=== PATIENT | female | born 1965 | race Caucasian/White ===

== ENCOUNTER 2018-06-10 23:45 | Emergency (ER) | payer MEDICAID ==
[~2018-06-10] VITALS: Ht 165.1 cm; Wt 113.4 kg
[2018-06-11 00:05] VITALS: BP_SYST 113
[2018-06-11] MEDS ORDERED: MORPHINE 2 MG/ML INJ. SYRINGE IM ONE (01:30)
[2018-06-11] MEDS ORDERED: MORPHINE 4 MG/ML INJ. SYRINGE IM ONE (01:45)
[2018-06-11 02:15] LABS: HEMATOCRIT 37.7 % (36-48); HEMOGLOBIN 12.9 g/dL (12.0-16.0); MEAN CORPUSCULAR HEMOGLOBIN 29 pg (27-31); MEAN CORPUSCULAR HGB CONC 34 % (32-36); MEAN CORPUSCULAR VOLUME 83 fL (79.0-98.0); RED BLOOD CELL COUNT(AUTO) 4.52 MIL/uL (4.2-6.2); WHITE BLOOD COUNT (AUTO) 8.7 K/uL (4.8-10.8)
[2018-06-11 02:16] LABS: BASOPHILS % (AUTO) 0.3 % (0.0-2.0); EOSINOPHILS % (AUTO) 0.3 % (0.0-4.0); LYMPHOCYTES # (AUTO) 0.5 K/uL (1.0-5.5); LYMPHOCYTES % (AUTO) 5.7 % (20.5-51.5); MONOCYTES # (AUTO) 0.6 K/uL (0.0-1.0); MONOCYTES % (AUTO) 6.7 % (1.7-9.3); NEUTROPHILS # (AUTO) 7.6 K/uL (1.8-7.7); PLATELET COUNT (AUTO) 254 K/uL (130-430); RED CELL DISTRIBUTION WIDTH 14.3 % (9.0-15.0)
[2018-06-11] MEDS ORDERED: ACETAMINOPHEN 325 MG TABLET PO ONE ×2 (02:30→04:00)
[2018-06-11] MEDS ORDERED: OSELTAMIVIR PHOSPHATE 75 MG CAPSULE PO ONE ×2 (02:30→04:00)
[2018-06-11 02:33] LABS: CALCIUM 8.9 mg/dL (8.4-11.0)
[2018-06-11 02:34] LABS: ALBUMIN 2.7 g/dL (3.4-4.8); CREATININE 3.49 mg/dL (0.55-1.30); TOTAL BILIRUBIN 0.5 mg/dL (0.0-1.0)
[2018-06-11] MEDS ORDERED: KETOROLAC TROMETHAMINE 60 MG/2 ML VIAL IM ONE (03:45)
[2018-06-11 05:13] VITALS: BP_SYST 115
== END 2018-06-11 05:13 | disposition home or self-care (01) ==
LOC: SED 23:45
DX: J11.1 Influenza due to unidentified influenza virus with other respiratory manifestations (principal)
CPT/HCPCS: 36415; 70450; 80053; 85025; 86710; 96372; 99284; G9035; J1885; J2270

== ENCOUNTER 2019-04-04 23:55 | Inpatient (IN) | payer MEDICAID ==
[~2019-04-04] VITALS: Ht 165.1 cm; Wt 149.7 kg
[2019-04-04 23:55] VITALS: BP_SYST 144
[2019-04-05] VITALS (11 sets, daily range): BP systolic 100–147
[2019-04-05 00:30] LABS: BASOPHILS # (AUTO) 0.1 K/uL (0.0-0.2); BASOPHILS % (AUTO) 0.9 % (0.0-2.0); EOSINOPHILS # (AUTO) 0.1 K/uL (0.0-0.4); EOSINOPHILS % (AUTO) 1.8 % (0.0-4.0); HEMATOCRIT 34.5 % (36-48); HEMOGLOBIN 11.6 g/dL (12.0-16.0); LYMPHOCYTES # (AUTO) 1.2 K/uL (1.0-5.5); LYMPHOCYTES % (AUTO) 20.2 % (20.5-51.5); MEAN CORPUSCULAR HEMOGLOBIN 31 pg (27-31); MEAN CORPUSCULAR HGB CONC 34 % (32-36); MEAN CORPUSCULAR VOLUME 94 fL (79.0-98.0); MONOCYTES # (AUTO) 0.5 K/uL (0.0-1.0); MONOCYTES % (AUTO) 7.5 % (1.7-9.3); NEUTROPHILS # (AUTO) 4.2 K/uL (1.8-7.7); NEUTROPHILS % (AUTO) 69.6 % (40.0-70.0); PLATELET COUNT (AUTO) 233 K/uL (130-430); RED BLOOD CELL COUNT(AUTO) 3.69 MIL/uL (4.2-6.2); RED CELL DISTRIBUTION WIDTH 15.6 % (9.0-15.0); WHITE BLOOD COUNT (AUTO) 6.1 K/uL (4.8-10.8)
[2019-04-05 00:41] LABS: ANION GAP 6 (5-15); CALCIUM 8.5 mg/dL (8.4-11.0); CHLORIDE 101 mmol/L (98-107); CREATININE 6.04 mg/dL (0.55-1.30); GLUCOSE 189 mg/dL (70-99); POTASSIUM 4.8 mmol/L (3.5-5.1); SODIUM SERUM 138 mmol/L (136-145); UREA NITROGEN, BLOOD 49 mg/dL (8-21)
[2019-04-05 00:43] LABS: INR 1.1 (0.8-1.2); PROTHROMBIN TIME 10.6 SECS (9.5-12.5)
[2019-04-05] MEDS ORDERED: fentaNYL CITRATE/PF 100 MCG/2 ML AMP IVP ONE ×3 (00:45→06:45)
[2019-04-05] MEDS ORDERED: MORPHINE 2 MG/ML INJ. SYRINGE IVP ONE (00:45)
[2019-04-05 00:47] LABS: ALANINE AMINOTRANSFERASE 21 U/L (12-78); ASPARTATE AMINOTRANSFERASE 17 U/L (10-37); TOTAL BILIRUBIN 0.5 mg/dL (0.0-1.0)
[2019-04-05 00:49] LABS: GFR AFRICAN AMERICAN 9 mL/min (>90)
[2019-04-05 00:50] LABS: ALBUMIN < 0.6 g/dL (3.4-4.8)
[2019-04-05] MEDS ORDERED: DEXTROSE 50% JECT 50 ML DISP.SYRIN IVP PRN (09:15)
[2019-04-05] MEDS: HYDROmorphone 1 MG INJ. 1 MG/ML AMPUL IVP PRN ×3 (12:11→23:38)
[2019-04-05] MEDS ORDERED: HYDR100T25 PO (13:49)
[2019-04-05] MEDS ORDERED: MINO2.5T PO (13:49)
[2019-04-05] MEDS ORDERED: FURO-149 PO (13:49)
[2019-04-05] MEDS ORDERED: INSU100V SQ (13:49)
[2019-04-05] MEDS: INSULIN REGULAR, HUMAN 100 UNITS/ML, 10 ML VIAL (humuLIN R) SUBCUT PRN ×2 (17:17→20:14)
[2019-04-06] VITALS: BP_SYST 114
[2019-04-06] MEDS: HYDROmorphone 1 MG INJ. 1 MG/ML AMPUL IVP PRN ×5 (03:35→20:36)
[2019-04-06] MEDS: INSULIN REGULAR, HUMAN 100 UNITS/ML, 10 ML VIAL (humuLIN R) SUBCUT PRN (06:21)
[2019-04-06 07:07] LABS: BASOPHILS % (AUTO) 0.5 % (0.0-2.0); EOSINOPHILS # (AUTO) 0.2 K/uL (0.0-0.4); EOSINOPHILS % (AUTO) 3.4 % (0.0-4.0); HEMATOCRIT 34.3 % (36-48); HEMOGLOBIN 11.4 g/dL (12.0-16.0); LYMPHOCYTES # (AUTO) 1.4 K/uL (1.0-5.5); LYMPHOCYTES % (AUTO) 24.9 % (20.5-51.5); MEAN CORPUSCULAR HEMOGLOBIN 32 pg (27-31); MEAN CORPUSCULAR HGB CONC 33 % (32-36); MEAN CORPUSCULAR VOLUME 95 fL (79.0-98.0); MONOCYTES # (AUTO) 0.5 K/uL (0.0-1.0); MONOCYTES % (AUTO) 9.3 % (1.7-9.3); NEUTROPHILS # (AUTO) 3.5 K/uL (1.8-7.7); NEUTROPHILS % (AUTO) 61.9 % (40.0-70.0); PLATELET COUNT (AUTO) 226 K/uL (130-430); RED BLOOD CELL COUNT(AUTO) 3.63 MIL/uL (4.2-6.2); WHITE BLOOD COUNT (AUTO) 5.6 K/uL (4.8-10.8)
[2019-04-06 07:14] LABS: ALBUMIN 3.4 g/dL (3.4-4.8); CALCIUM 8.9 mg/dL (8.4-11.0); CREATININE 5.56 mg/dL (0.55-1.30); POTASSIUM 4.8 mmol/L (3.5-5.1); TOTAL BILIRUBIN 0.5 mg/dL (0.0-1.0)
[2019-04-06 08:00] VITALS: BP_SYST 125
[2019-04-06 11:02] VITALS: BP_SYST 127
[2019-04-06] MEDS ORDERED: ACETAMINOPHEN 325 MG TABLET PO PRN (13:30)
[2019-04-06] MEDS ORDERED: ONDANSETRON HCL 4 MG/2 ML VIAL IVP PRN (13:30)
[2019-04-06 15:32] VITALS: BP_SYST 135
[2019-04-06 20:00] VITALS: BP_SYST 145
[2019-04-07] MEDS: HYDROmorphone 1 MG INJ. 1 MG/ML AMPUL IVP PRN ×5 (00:38→21:56)
[2019-04-07 01:33] VITALS: BP_SYST 149
[2019-04-07 08:03] VITALS: BP_SYST 136
[2019-04-07 11:29] VITALS: BP_SYST 152
[2019-04-07] MEDS: HYDROcodone/ACETAMIN 10-325 MG TAB PO PRN (14:35)
[2019-04-07 15:04] VITALS: BP_SYST 146
[2019-04-07] MEDS ORDERED: HYDROmorphone 1 MG INJ. 1 MG/ML AMPUL IVP ONE (17:00)
[2019-04-07] MEDS: SERTRALINE HCL 50 MG TABLET PO SCH ×2 (18:00→18:08)
[2019-04-07 20:00] VITALS: BP_SYST 158
[2019-04-08] VITALS (7 sets, daily range): BP systolic 132–164
[2019-04-08] MEDS: HYDROcodone/ACETAMIN 10-325 MG TAB PO PRN ×5 (01:57→20:49)
[2019-04-08] MEDS: HYDROmorphone 1 MG INJ. 1 MG/ML AMPUL IVP PRN ×3 (04:10→15:12)
[2019-04-08 07:00] LABS: BASOPHILS % (AUTO) 0.9 % (0.0-2.0); EOSINOPHILS # (AUTO) 0.2 K/uL (0.0-0.4); EOSINOPHILS % (AUTO) 2.7 % (0.0-4.0); HEMATOCRIT 34.8 % (36-48); HEMOGLOBIN 11.7 g/dL (12.0-16.0); LYMPHOCYTES # (AUTO) 1.4 K/uL (1.0-5.5); LYMPHOCYTES % (AUTO) 24.2 % (20.5-51.5); MEAN CORPUSCULAR HEMOGLOBIN 32 pg (27-31); MEAN CORPUSCULAR HGB CONC 34 % (32-36); MEAN CORPUSCULAR VOLUME 94 fL (79.0-98.0); MONOCYTES # (AUTO) 0.5 K/uL (0.0-1.0); MONOCYTES % (AUTO) 8.6 % (1.7-9.3); NEUTROPHILS # (AUTO) 3.7 K/uL (1.8-7.7); NEUTROPHILS % (AUTO) 63.6 % (40.0-70.0); PLATELET COUNT (AUTO) 206 K/uL (130-430); RED BLOOD CELL COUNT(AUTO) 3.71 MIL/uL (4.2-6.2); RED CELL DISTRIBUTION WIDTH 15.2 % (9.0-15.0); WHITE BLOOD COUNT (AUTO) 5.8 K/uL (4.8-10.8)
[2019-04-08 07:15] LABS: ALBUMIN 3.3 g/dL (3.4-4.8); CALCIUM 8.5 mg/dL (8.4-11.0); CREATININE 6.37 mg/dL (0.55-1.30); POTASSIUM 5.3 mmol/L (3.5-5.1); TOTAL BILIRUBIN 0.5 mg/dL (0.0-1.0)
[2019-04-08] MEDS ORDERED: CITALOPRAM HYDROBROMIDE 20 MG TABLET PO SCH (09:00)
[2019-04-08] MEDS ORDERED: ALTEPLASE 2 MG VIAL MC ONE (19:00)
== END 2019-04-08 21:58 | disposition home or self-care (01) | DRG 194 ==
LOC: SED 23:55 → SIC 04-05 02:37 → STU 04-05 07:30 → SIC 04-05 08:08 → STU 04-05 16:45 → SMU 04-06 13:11
PROVIDERS: ADMIT Internal Medicine; ATTEND Internal Medicine
PROC: 5A1D70Z Performance of Urinary Filtration, Intermittent, Less than 6 Hours Per Day (ICD-10-PCS; principal; 2019-04-08)
DX: I13.2 Hypertensive heart and chronic kidney disease with heart failure and with stage 5 chronic kidney disease, or end stage renal disease (principal); J96.00 Acute respiratory failure, unspecified whether with hypoxia or hypercapnia; E43 Unspecified severe protein-calorie malnutrition; E11.22 Type 2 diabetes mellitus with diabetic chronic kidney disease; N18.6 End stage renal disease; E66.01 Morbid (severe) obesity due to excess calories; E87.79 Other fluid overload; F32.9 Major depressive disorder, single episode, unspecified; F41.9 Anxiety disorder, unspecified; Z88.5 Allergy status to narcotic agent; Z88.2 Allergy status to sulfonamides; G89.29 Other chronic pain; M54.9 Dorsalgia, unspecified; D63.8 Anemia in other chronic diseases classified elsewhere; D64.9 Anemia, unspecified; E78.5 Hyperlipidemia, unspecified; Z76.5 Malingerer [conscious simulation]; M47.9 Spondylosis, unspecified; Z68.43 Body mass index [BMI] 50.0-59.9, adult; Z79.84 Long term (current) use of oral hypoglycemic drugs; I50.9 Heart failure, unspecified
CPT/HCPCS: 36415; 71045; 72110; 80053; 82550-TC; 82962; 83880; 84439; 84484; 85025; 85610-TC; 87081; 90935; 90937; 93005; 93306; 96374; 99285; G0378; J1170; J1815; J2997; J3010; J7030

== ENCOUNTER 2019-04-09 20:31 | Inpatient (IN) | payer MEDICAID ==
[~2019-04-09] VITALS: Ht 165.1 cm; Wt 144.7 kg
[~2019-04-09 20:31] MED LIST: FURO-149 PO; HYDR100T25 PO; INSU100V SQ; MINO2.5T PO
[2019-04-09 20:35] VITALS: BP_SYST 151
--- NOTE | 2019-04-09 20:35 | NUR ---
Patient to ER bed 6 to gown for evaluation. Side rails up. Report given to GABRIELLA Islas
--- NOTE | 2019-04-09 20:45 | NUR ---
Pt BIB daughter C/O gradual onset of SOB and back pain since this afternoon. Pt states she feels "winded". Pt was recently discharged last night for CHF exacerbation and similar symptoms. Back pain is 10/10 and O2 sat is 94-95% on room air at time of assessment. Denies any chest pain, N/V/D or any other symptoms at this time. Will continue to monitor.
--- NOTE | 2019-04-09 21:12 | NUR ---
ER Dr. Palumbo at bedside examining patient.
--- NOTE | 2019-04-09 21:35 | NUR ---
# 20 gauge angiocath placed to RT AC. Use of asceptic technique. Opsite placed over site. Blood return noted. Blood for lab drawn from site. Flushed with 10 cc of normal saline. No evidence of infiltration noted. Patient tolerated well.
[2019-04-09 21:52] LABS: BASOPHILS % (AUTO) 0.9 % (0.0-2.0); EOSINOPHILS # (AUTO) 0.1 K/uL (0.0-0.4); EOSINOPHILS % (AUTO) 2.1 % (0.0-4.0); HEMATOCRIT 32.9 % (36-48); HEMOGLOBIN 11.1 g/dL (12.0-16.0); LYMPHOCYTES # (AUTO) 1.1 K/uL (1.0-5.5); LYMPHOCYTES % (AUTO) 22.4 % (20.5-51.5); MEAN CORPUSCULAR HEMOGLOBIN 31 pg (27-31); MEAN CORPUSCULAR HGB CONC 34 % (32-36); MEAN CORPUSCULAR VOLUME 93 fL (79.0-98.0); MONOCYTES # (AUTO) 0.4 K/uL (0.0-1.0); MONOCYTES % (AUTO) 8.6 % (1.7-9.3); NEUTROPHILS # (AUTO) 3.4 K/uL (1.8-7.7); PLATELET COUNT (AUTO) 168 K/uL (130-430); RED BLOOD CELL COUNT(AUTO) 3.55 MIL/uL (4.2-6.2); RED CELL DISTRIBUTION WIDTH 15.4 % (9.0-15.0); WHITE BLOOD COUNT (AUTO) 5.1 K/uL (4.8-10.8)
[2019-04-09 22:10] LABS: ANION GAP 10 (5-15); CALCIUM 8.7 mg/dL (8.4-11.0); CHLORIDE 104 mmol/L (98-107); CREATININE 6.31 mg/dL (0.55-1.30); GLUCOSE 188 mg/dL (70-99); POTASSIUM 4.6 mmol/L (3.5-5.1); SODIUM SERUM 140 mmol/L (136-145); UREA NITROGEN, BLOOD 60 mg/dL (8-21)
[2019-04-09 22:17] LABS: GFR AFRICAN AMERICAN 9 mL/min (>90)
[2019-04-09 22:24] LABS: ALANINE AMINOTRANSFERASE 14 U/L (12-78); ALBUMIN 3.2 g/dL (3.4-4.8); ASPARTATE AMINOTRANSFERASE 19 U/L (10-37); TOTAL BILIRUBIN 0.5 mg/dL (0.0-1.0)
--- NOTE | 2019-04-09 22:40 | NUR ---
Pt is restless and anxious in bed, constantly yelling in the room. Pt has been educated to rest in bed and patiently wait for diagnositic results to come in. Will continue to monitor.
--- NOTE | 2019-04-09 23:34 | NUR ---
Pt is resting in bed, no acute distress noted at this time. Will continue to monitor.
--- NOTE | 2019-04-10 00:18 | NUR ---
Daughter Lilli left contact information for any updates or change in condition
--- NOTE | 2019-04-10 01:00 | NUR ---
Pt is able to ambulate to restroom with no assistance, will continue to monitor.
[2019-04-10] MEDS ORDERED: KETOROLAC TROMETHAMINE 15 MG VIAL IVP ONE ×2 (01:30→01:45)
--- NOTE | 2019-04-10 01:39 | NUR ---
Pt has been medicated with Toradol IVP for back pain, will continue to monitor.
[2019-04-10] MEDS ORDERED: KETOROLAC TROMETHAMINE 15 MG VIAL ONE (01:46)
--- NOTE | 2019-04-10 02:02 | NUR ---
Medication reconciliation completed with information provided by patient. Any prior medication reconciliation on file was reviewed and corrected.
[2019-04-10] MEDS ORDERED: hydrALAZINE HCL 20 MG/ML VIAL IVP ONE (02:15)
--- NOTE | 2019-04-10 03:18 | NUR ---
Pt is sleeping comfortably in bed, no complaints of pain at this time. Will continue to monitor.
[2019-04-10] MEDS ORDERED: INSULIN REGULAR, HUMAN 100 UNITS/ML, 10 ML VIAL (humuLIN R) SUBCUT PRN ×2 (03:45→11:30)
[2019-04-10] MEDS ORDERED: cloNIDine HCL 0.1 MG TABLET PO PRN (03:45)
--- NOTE | 2019-04-10 03:55 | NUR ---
Patient will be admitted to care of Dr. Stearns. Admitted to telemetry unit. Will go to room 125A. Belongings list completed. Summary report printed. Report will be given at bedside.
--- NOTE | 2019-04-10 04:07 | NUR ---
CONSULTATION PAGED/CALLED Reason for Consultation: NEPHROLOGY Person Who was Notified: CASIMIRO Consulting Physician: DR. FERNANDEZ Fire Warden Specialty: Ordering Physician: DR. AYALA
--- NOTE | 2019-04-10 04:24 | NUR ---
ADMIT NOTE Received pt from ER to [facility] floor with a diagnosis of fluid overload. Admission process initiated. patient oriented to pain management, safety and call light-teach back done.
[2019-04-10] MEDS ORDERED: FUROSEMIDE 100 MG/10 ML VIAL IVP SCH (04:30)
--- NOTE | 2019-04-10 04:34 | NUR ---
Transfer to telemetry via ACLS protocol. Licensed nurse present. IV present no signs or symptoms of infiltration.
[2019-04-10 04:38] VITALS: BP_SYST 181
[2019-04-10] MEDS ORDERED: FUROSEMIDE 40 MG/4 ML VIAL ONE (05:13)
[2019-04-10] MEDS: HYDROcodone/ACETAMIN 10-325 MG TAB PO PRN ×4 (05:26→22:08)
--- NOTE | 2019-04-10 05:30 | NUR ---
c/o pain c/o moderate pain to low back. Administered [place] for moderate pain as ordered.
[2019-04-10 06:35] VITALS: BP_SYST 117
--- NOTE | 2019-04-10 06:40 | NUR ---
closing note Patient is resting in comfortable position. Pain decreased to a one. Nonlabored breathing on room air. Fingerstick BGT done w/ result of 157 and covered per sliding scale. Will endorse care to oncoming nurse
[2019-04-10 08:10] VITALS: BP_SYST 120
--- NOTE | 2019-04-10 09:07 | NUR ---
Nutrition Update Jaskaran Scale 18 noted. Pt admitted for fluid overload. Diet: renal BMI: 53.3 kg/m2 RD to follow per nutrition care standards.
[2019-04-10] MEDS ORDERED: DEXTROSE 50% JECT 50 ML DISP.SYRIN IVP PRN (11:30)
--- NOTE | 2019-04-10 11:52 | NUR ---
INFORMED RAMYA OF NM THAT PT WILL HAVE HD NOW AND EXPECTED TO FINISH AT 4PM
--- NOTE | 2019-04-10 12:03 | NUR ---
PT HAVE U/S OF LEG DONE, BS IS 194, NO COVERAGE PER SLIDING SCALE. PT INFORMED THAT HD NURSE IS COMING AND EXPECTED HD TO FINISH AT 4PM AND SHE WILL HAVE VQ SCAN OF LUNGS AFTER HD.
[2019-04-10] MEDS ORDERED: HEPARIN SODIUM,PORCINE 5000 UNITS/ML VIAL IVP ONE (12:30)
--- NOTE | 2019-04-10 12:50 | NUR ---
CONSULTATION CALLED FOR ALYSSA GARCIA ORDER BY JAMIE STINSON FOR CONSULT OF CHF SPOKE WITH ARABELLA
--- NOTE | 2019-04-10 14:27 | NUR ---
PT HAVING HD THIS TIME. NO C/O PAIN. NO SOB.
[2019-04-10] MEDS: hydrALAZINE HCL 25 MG TABLET PO SCH ×2 (16:04→22:01)
--- NOTE | 2019-04-10 16:10 | NUR ---
HD COMPLETED, 4 LI OUTPUT, PT C/O OF SHOOTING PAIN ON HER LOWER RIB GOING FROM LEFT TO RIGHT, PT GIVEN PAIN MEDICATION. PT TURNED AND REPOSITIONED SELF, STATED PAIN IS GETTING BETTER. WILL CONT TO MONITOR.
--- NOTE | 2019-04-10 16:47 | NUR ---
PT NOW C/O OF PAIN ON HER LOWER BACK, PT OSWALDO , STATED THAT HER LOWER RIB PAIN WENT AWAY AFTER NORCO WAS GIVEN. DR AYALA WAS PAGED AND GAVE A 1 X ORDER OR PAIN MED.
[2019-04-10] MEDS ORDERED: HYDROmorphone 1 MG INJ. 1 MG/ML AMPUL IVP ONE (17:15)
[2019-04-10 17:23] VITALS: BP_SYST 138
--- NOTE | 2019-04-10 17:32 | NUR ---
PT GIVEN DILAUDID 1MG X1 PREMED FOR VQSCAN. PT TAKEN DOWN BY [employer] FOR VQ SCAN VIA WC.
--- NOTE | 2019-04-10 17:51 | NUR ---
PT CAME BACK FROM [place], PER PT SHE WAS UNABLE TO TOLERATE THE TEST WITH THE MASK, THEY TRIED 4 X WITH THE MASK BUT SHE SHE CANT TOLERATE IT. WILL INFORM DR AYALA. PAGED TO MAKE AWARE.
--- NOTE | 2019-04-10 17:55 | NUR ---
DR AYALA INFORMED THAT PT UNABLE TO TOLERATE THE INITIAL PHASE OF THE VQ SCAN. NEW ORDER GIVEN.
--- NOTE | 2019-04-10 18:37 | NUR ---
CLOSING NOTES, PT HAS BEEN STABLE, C/O OF ON AND OFF SOB BUT SATURATION WAS WNL. PT HAD HD 4 LI. TAKEN OUT. GIVEN PAIN MEDS REQUESTED. PT UNABLE TO TOLERATE VQ SCAN MD IS AWARE. WILL ENDORSE TO NIGHT NURSE.
--- NOTE | 2019-04-10 19:18 | NUR ---
OPENING NOTES RECEIVED PATIENT IN BED AAO X4. BREATHING UNLABORED ON ROOM AIR. NO C/O PAIN AT THIS TIME. BED IN LOWEST LOCKED POSITION. CALL LIGHT WITH IN REACH.
[2019-04-10] MEDS ORDERED: ENOXAPARIN SODIUM 30 MG/0.3 ML SYRINGE SUBCUT SCH (21:00)
[2019-04-10 22:00] VITALS: BP_SYST 153
[2019-04-10] MEDS: MINOXIDIL 10 MG TABLET (LONITEN) PO SCH (22:02)
--- NOTE | 2019-04-10 22:04 | NUR ---
MED PASS PATIENT DUE MEDICATIONS GIVEN. VITAL SIGNS STABLE.
--- NOTE | 2019-04-10 22:08 | NUR ---
AIN MGT PATIENT MEDICATED WITH NORCO ORDERED FOR C/O BACK PAIN 11/12. VITAL SIGNS STABLE. CALL LIGHT WITH IN REACH.
--- NOTE | 2019-04-11 00:30 | NUR ---
ROUNDS PATIENT SITTING IN BED. NO DISTRESS NOTED. PLACED CALL LIGHT WITH IN REACH. PER PATIENT SHE WILL SIT FOR THE MEAN TIME. PATIENT ENCOURAGED TO USE CALL LIGHT FOR ANY ASSISTANCE SPECIALLY WHEN GETTING OUT OF BED.
--- NOTE | 2019-04-11 02:15 | NUR ---
ROUNDS PATIENT RESTING IN BED. NO DISTRESS NOTED. CALL LIGHT WITH IN REACH.
[2019-04-11] MEDS: HYDROcodone/ACETAMIN 10-325 MG TAB PO PRN ×2 (04:09→09:28)
--- NOTE | 2019-04-11 04:09 | NUR ---
PAIN MGT PATIENT MEDICATED WITH NORCO FOR C/O LOWER BACK PAIN.
--- NOTE | 2019-04-11 06:29 | NUR ---
CLOSING NOTES PATIENT RESTING IN BED. BREATHING UNLABORED ON ROOM AIR. AM FINGER STICK SUGAR 149. NO INSULIN COVERAGE NEEDED PER SLIDING SCALE ORDER. PATIENT NEEDS ATTENDED. BED IN LOWEST LOCKED POSITION. CALL LIGHT WITH IN REACH.
--- NOTE | 2019-04-11 07:30 | NUR ---
Initial note: Patient was sleeping but wake up for a phone ring. She is alert, oriented x4, states feeling hungry. Inform her that a LAUNDRY ROUTE DRIVER is passing the tray now. She states that she is legally blind. But when tell her to call us to help when she needs to get up and go to the bathroom, she said she still can see when she goes to the bathroom. Set a bed alarm for safety.
[2019-04-11 07:32] VITALS: BP_SYST 140
[2019-04-11] MEDS ORDERED: FUROSEMIDE 40 MG TABLET PO SCH (09:00)
[2019-04-11] MEDS: hydrALAZINE HCL 25 MG TABLET PO SCH (09:21)
[2019-04-11] MEDS: MINOXIDIL 10 MG TABLET (LONITEN) PO SCH (09:24)
--- NOTE | 2019-04-11 09:47 | NUR ---
Nephro round: Dr. Clark makes round and has new orders for HD and Labs for TM.
--- NOTE | 2019-04-11 11:27 | NUR ---
Refuses SNF: Inform patient that there is order for DC to SNF, but patient states she wants to go home not a snf. Will inform a vocational case manager and .
--- NOTE | 2019-04-11 11:48 | NUR ---
AMA: Dr. Stearns makes round and talks to the patient that she needs to go to SNF, but she refuses . Dr. Stearns states she can sign AMA if she wants to go home. Get a AMA for her to sign, and she has called her dad to pick her up. IV lock removed with dry dressing apply, no bleeding sign.
--- NOTE | 2019-04-11 12:00 | NUR ---
Nutrition Note RD visited pt for Nutrition Assessment verbal interview, however, pt stated she was leaving soon and was not interested in RD services. Pt requested pitcher full of ice to-go because she reported she cannot eat anything else at this time, and does not have ice at home. RD provided ice for pt. RD to remain available as per nutrition care standards.
--- NOTE | 2019-04-11 13:41 | NUR ---
DC: Family at bedside. Patient is discharged <AMA> via a wheelchair by on of the MANAGER CORPORATE MARKETING to a private vehicle with stable condition.
== END 2019-04-11 12:20 | disposition left against medical advice (07) | DRG 470 ==
LOC: SED 20:31 → STU 04-10 03:31 → SMU 04-10 15:45
PROVIDERS: ADMIT Internal Medicine; ATTEND Internal Medicine
PROC: 5A1D70Z Performance of Urinary Filtration, Intermittent, Less than 6 Hours Per Day (ICD-10-PCS; principal; 2019-04-10)
DX: I12.0 Hypertensive chronic kidney disease with stage 5 chronic kidney disease or end stage renal disease (principal); E11.22 Type 2 diabetes mellitus with diabetic chronic kidney disease; N18.6 End stage renal disease; E87.70 Fluid overload, unspecified; E66.01 Morbid (severe) obesity due to excess calories; D63.1 Anemia in chronic kidney disease; Z53.29 Procedure and treatment not carried out because of patient's decision for other reasons; G89.29 Other chronic pain; M54.9 Dorsalgia, unspecified; M47.816 Spondylosis without myelopathy or radiculopathy, lumbar region; Z99.2 Dependence on renal dialysis; Z68.43 Body mass index [BMI] 50.0-59.9, adult; Z88.5 Allergy status to narcotic agent; Z91.19 Patient's noncompliance with other medical treatment and regimen; E44.1 Mild protein-calorie malnutrition
CPT/HCPCS: 36415; 71045; 80053; 82550-TC; 82962; 83880; 84484; 85025; 85379; 87081; 90935; 93005; 93970; 96374; 96375; 99285; J0360; J1170; J1644; J1650; J1815; J1885; J1940; J7030

== ENCOUNTER 2019-04-25 21:40 | Observation (INO) | payer MEDICAID ==
[~2019-04-25] VITALS: Ht 165.1 cm; Wt 132.4 kg
[2019-04-25] MEDS ORDERED: NITROGLYCERIN 1 INCH (GM) OINT. ONE (22:24)
[2019-04-25] MEDS ORDERED: FUROSEMIDE 40 MG/4 ML VIAL ONE (22:24)
[2019-04-25] MEDS ORDERED: ALBUTEROL SULFATE 0.083% 2.5 MG/3 ML VIAL.NEB INH ONE (22:25)
[2019-04-26] VITALS (8 sets, daily range): BP systolic 136–158
[2019-04-26] MEDS ORDERED: HYDROcodone/ACETAMIN 7.5-325 MG TAB ONE (00:05)
--- NOTE | 2019-04-26 01:24 | NUR ---
0047 ADMIT NOTE Received pt from ER to the floor with a diagnosis of chf exacerbation. Admission process initiated. patient oriented to pain management, safety and call light-teach back done.
--- NOTE | 2019-04-26 02:21 | NUR ---
RN ROUNDS Patient resting quietly in bed, breathing is even and unlabored, remains on 02 6L NC, fall and safety measures in place, call light within reach, will monitor.
--- NOTE | 2019-04-26 03:26 | NUR ---
RN ROUNDS Patient assisted to bathroom, steady gait noted, denies any shortness of breath, placed back in bed, 02 at 6L NC placed, patient denies any pain at this time.
--- NOTE | 2019-04-26 03:58 | NUR ---
Consultation Paged Reason for Consultation: CHF Was consult called: Y Person who was notified: Ariella Consulting Physician: Dr. Olmedo Color Paste Mixing Supervisor Ordering Physician: Dr. Walker
--- NOTE | 2019-04-26 04:00 | NUR ---
Consultation Paged Reason for Consultation: Hemodialysis/CHF Was consult called: Y Person who was notified: Ariella Consulting Physician: Dr. Clark Community Youth Secretary Ordering Physician: Dr. Walker
--- NOTE | 2019-04-26 04:04 | NUR ---
Consultation Paged Reason for Consultation: CHF/SOB Was consult called: Y Person who was notified: Ariella Consulting Physician: Ebony Escalante Scientific Illustrator Ordering Physician: Dr. Walker
--- NOTE | 2019-04-26 06:14 | NUR ---
RN ROUNDS Patient continues to sleep, breathing is even and unlabored, remains on 02 6L NC, in stable condition, safety measures maintained, call light remains within reach, will monitor until report given to am nurse.
--- NOTE | 2019-04-26 07:35 | NUR ---
AM ROUNDS: PATIENT LYING ON THE BED,ASLEEP. ON O2 6L/MIN,GOOD SATURATION.RIGHT CHEST PERMA CATHETER,CLEAN AND DRY.LEFT AV SHUNT,CLEAN AND DRY. CALL LIGHT WITH IN REACH. BED LOCKED AT LOWEST POSITION. CONTINUE TO MONITOR.
[2019-04-26] MEDS ORDERED: ZOLPIDEM TARTRATE 5 MG TABLET PO PRN (08:45)
[2019-04-26] MEDS ORDERED: MAGNESIUM SULFATE 50 ML IV PRN (08:45)
[2019-04-26] MEDS ORDERED: ONDANSETRON HCL 4 MG/2 ML VIAL IVP PRN (08:45)
[2019-04-26] MEDS ORDERED: ACETAMINOPHEN 325 MG TABLET PO PRN (08:45)
[2019-04-26] MEDS ORDERED: LORazepam 2 MG/ML VIAL IVP PRN (08:45)
[2019-04-26] MEDS ORDERED: DOCUSATE SODIUM 100 MG CAPSULE PO PRN (08:45)
[2019-04-26] MEDS ORDERED: MUPIROCIN 2% TOPICAL OINTMENT 22 GM NS PRN (08:45)
[2019-04-26] MEDS ORDERED: DEXTROSE 50% JECT 50 ML DISP.SYRIN IVP PRN (08:45)
[2019-04-26] MEDS ORDERED: POTASSIUM CHLORIDE 20 MEQ TAB.PRT.SR PO PRN (08:45)
[2019-04-26 08:49] LABS: BASOPHILS % (AUTO) 0.8 % (0.0-2.0); EOSINOPHILS # (AUTO) 0.1 K/uL (0.0-0.4); EOSINOPHILS % (AUTO) 2.1 % (0.0-4.0); HEMATOCRIT 32.6 % (36-48); HEMOGLOBIN 10.9 g/dL (12.0-16.0); LYMPHOCYTES # (AUTO) 1.3 K/uL (1.0-5.5); LYMPHOCYTES % (AUTO) 30.1 % (20.5-51.5); MEAN CORPUSCULAR HEMOGLOBIN 31 pg (27-31); MEAN CORPUSCULAR HGB CONC 34 % (32-36); MEAN CORPUSCULAR VOLUME 93 fL (79.0-98.0); MONOCYTES # (AUTO) 0.5 K/uL (0.0-1.0); NEUTROPHILS # (AUTO) 2.5 K/uL (1.8-7.7); PLATELET COUNT (AUTO) 171 K/uL (130-430); RED BLOOD CELL COUNT(AUTO) 3.51 MIL/uL (4.2-6.2); RED CELL DISTRIBUTION WIDTH 15.8 % (9.0-15.0); WHITE BLOOD COUNT (AUTO) 4.4 K/uL (4.8-10.8)
[2019-04-26] MEDS ORDERED: HEPARIN SODIUM,PORCINE 5000 UNITS/ML VIAL SUBCUT ONE (09:00)
[2019-04-26] MEDS ORDERED: hydrALAZINE HCL 25 MG TABLET PO SCH (09:00)
[2019-04-26] MEDS ORDERED: MINOXIDIL 2.5 MG PO SCH (09:00)
[2019-04-26 09:09] LABS: CALCIUM 8.5 mg/dL (8.4-11.0); CREATININE 6.27 mg/dL (0.55-1.30); POTASSIUM 3.7 mmol/L (3.5-5.1)
[2019-04-26 09:15] LABS: ALBUMIN 3.4 g/dL (3.4-4.8); TOTAL BILIRUBIN 0.5 mg/dL (0.0-1.0)
--- NOTE | 2019-04-26 09:30 | NUR ---
RN ROUNDS: PATIENT SLEEPING DURING ROUNDS. NOT IN ANY RESPIRATORY DISTRESS.
[2019-04-26] MEDS: hydrALAZINE HCL 25 MG TABLET PO SCH ×2 (09:32→20:58)
[2019-04-26] MEDS: FUROSEMIDE 40 MG/4 ML VIAL IVP SCH (09:32)
[2019-04-26] MEDS: INSULIN LISPRO SLIDING SCALE 100 UNITS/ML VIAL (humaLOG) SUBCUT PRN ×2 (11:29→17:12)
--- NOTE | 2019-04-26 11:30 | NUR ---
BLOOD SUGAR: PW=366HL/DL HUMULOG 4 UNITS SUBQ GIVEN PER SLIDING SCALE,NO COMPLICATIONS NOTED.
[2019-04-26 12:10] LABS: HEMATOCRIT 33.4 % (36-48); HEMOGLOBIN 11.3 g/dL (12.0-16.0); LYMPHOCYTES % (AUTO) 36.1 % (20.5-51.5); MEAN CORPUSCULAR HEMOGLOBIN 31 pg (27-31); MEAN CORPUSCULAR HGB CONC 34 % (32-36); MEAN CORPUSCULAR VOLUME 92 fL (79.0-98.0); NEUTROPHILS % (AUTO) 49.9 % (40.0-70.0); PLATELET COUNT (AUTO) 205 K/uL (130-430); RED BLOOD CELL COUNT(AUTO) 3.62 MIL/uL (4.2-6.2); RED CELL DISTRIBUTION WIDTH 15.8 % (9.0-15.0); WHITE BLOOD COUNT (AUTO) 5.3 K/uL (4.8-10.8)
[2019-04-26 12:11] LABS: BASOPHILS % (AUTO) 0.6 % (0.0-2.0); EOSINOPHILS # (AUTO) 0.1 K/uL (0.0-0.4); EOSINOPHILS % (AUTO) 1.8 % (0.0-4.0); LYMPHOCYTES # (AUTO) 1.9 K/uL (1.0-5.5); MONOCYTES # (AUTO) 0.6 K/uL (0.0-1.0); MONOCYTES % (AUTO) 11.6 % (1.7-9.3); NEUTROPHILS # (AUTO) 2.6 K/uL (1.8-7.7)
[2019-04-26 12:13] LABS: INR 1.1 (0.8-1.2)
[2019-04-26 12:14] LABS: CALCIUM 7.6 mg/dL (8.4-11.0); CREATININE 5.33 mg/dL (0.55-1.30); POTASSIUM 3.3 mmol/L (3.5-5.1); TOTAL BILIRUBIN 0.5 mg/dL (0.0-1.0)
--- NOTE | 2019-04-26 13:00 | NUR ---
RN ROUNDS: PATIENT ATE LUNCH. NO PROBLEM.
--- NOTE | 2019-04-26 15:15 | NUR ---
HD: HEMODIALYSIS STARTED.
--- NOTE | 2019-04-26 15:37 | NUR ---
Grad Intern: met with pt. to conduct a DCPA and Social Work interview. SOLE SPLITTER attempted to meet with pt. however she was sleeping and SOLE SPLITTER tried, but could not awaken her. SOLE SPLITTER tried again at 3:15, but she was in the middle of hemodialysis and she stated she was not in the mood to talk. SOLE SPLITTER stated she understands and will try again later. SOLE SPLITTER will remain available as needed.
[2019-04-26] MEDS ORDERED: HEPARIN SODIUM,PORCINE 5000 UNITS/ML VIAL MC ONE (16:00)
[2019-04-26] MEDS ORDERED: HEPARIN SODIUM, PORCINE 10,000 UNITS/ 10 ML VIAL MC ONE (16:00)
[2019-04-26] MEDS ORDERED: ALBUTEROL SULFATE 0.083% 2.5 MG/3 ML VIAL.NEB INH PRN (16:30)
[2019-04-26] MEDS ORDERED: IPRATROPIUM BROM 0.5 MG/2.5 ML VIAL.NEB (ATROVENT) INH PRN (16:30)
--- NOTE | 2019-04-26 17:20 | NUR ---
BLOOD SUGAR: RT=469AJ/DL,HUMULOG 2 UNITS SUBQ GIVEN PER SLIDING SCALE.NO PROBLEM. HD ON GOING.STABLE.
--- NOTE | 2019-04-26 18:25 | NUR ---
END OF SHIFT: HD OUT=5 LITERS. PATIENT EATING DINNER. NO ACUTE DISTRESS. WITH FAMILY AT THE BEDSIDE. CALL LIGHT WITH IN REACH. BED LOCKED AT LOWEST POSITION.
--- NOTE | 2019-04-26 19:19 | NUR ---
Opening Note Patient in bed resting alert and awake and able to verbalize her needs. IV site intact, saline lock. No current complaints of pain. Denies having any sob at this time. Oriented the patient to the room and use of the call light. Bed alarm refused with education provided on risk and benefits. Will monitor the patient on rounds.
[2019-04-26] MEDS: HEPARIN SODIUM,PORCINE 5000 UNITS/ML VIAL SUBCUT SCH (21:00)
--- NOTE | 2019-04-26 22:08 | NUR ---
BS 157. 2 Units Humalog given for coverage. Resting in bed.
[2019-04-27 00:43] VITALS: BP_SYST 134
--- NOTE | 2019-04-27 01:56 | NUR ---
Administered Ambien to help with sleep and tylenol for headache. Medication is effective. Patient is asleep in bed with no appearance of pain or sob.
--- NOTE | 2019-04-27 03:41 | NUR ---
No change in condition. Patient in bed asleep. Call light within reach.
[2019-04-27 06:45] LABS: BASOPHILS % (AUTO) 0.8 % (0.0-2.0); CALCIUM 8.4 mg/dL (8.4-11.0); CREATININE 4.88 mg/dL (0.55-1.30); EOSINOPHILS # (AUTO) 0.1 K/uL (0.0-0.4); EOSINOPHILS % (AUTO) 2.8 % (0.0-4.0); HEMATOCRIT 32.6 % (36-48); HEMOGLOBIN 11.1 g/dL (12.0-16.0); LYMPHOCYTES # (AUTO) 1.2 K/uL (1.0-5.5); MEAN CORPUSCULAR HEMOGLOBIN 32 pg (27-31); MEAN CORPUSCULAR HGB CONC 34 % (32-36); MEAN CORPUSCULAR VOLUME 93 fL (79.0-98.0); MONOCYTES # (AUTO) 0.5 K/uL (0.0-1.0); NEUTROPHILS # (AUTO) 2.7 K/uL (1.8-7.7); NEUTROPHILS % (AUTO) 59.4 % (40.0-70.0); PLATELET COUNT (AUTO) 179 K/uL (130-430); POTASSIUM 3.4 mmol/L (3.5-5.1); RED BLOOD CELL COUNT(AUTO) 3.52 MIL/uL (4.2-6.2); RED CELL DISTRIBUTION WIDTH 15.4 % (9.0-15.0); WHITE BLOOD COUNT (AUTO) 4.5 K/uL (4.8-10.8)
--- NOTE | 2019-04-27 06:51 | NUR ---
Closing Notes Patient in bed resting alert and orient. Refused bed alarm, education provided on risk and benefits. o2 at bedside, but patient keeps removing saying its uncomfortable. O2 sat at 93% on room air. IV intact on the right ac flushed, clean and dry. Call light placed within reach, bed locked and low. Will endorse care to oncoming shift.
[2019-04-27 08:00] VITALS: BP_SYST 149
--- NOTE | 2019-04-27 08:00 | NUR ---
initial notes rec patient awake alert and eating breakfast. ivl on the r ac intact. no infiltration noted. right internal jugular line intact. denies pain at this time. bed to the lowest position and side rails up and locked. call light within reached.
[2019-04-27] MEDS: hydrALAZINE HCL 25 MG TABLET PO SCH (10:00)
[2019-04-27] MEDS: FUROSEMIDE 40 MG/4 ML VIAL IVP SCH (10:00)
--- NOTE | 2019-04-27 10:02 | NUR ---
CHF PROTOCOL/ PCP APPOINTMENT WITHIN 1 WEEK PATIENT GROUP ON INSURANCE IS [facility]. CALLED [facility] SPOKE TO JELENA FROM [facility]. PATIENT HAS AN APPOINTMENT TO SEE DR RHODES ON MONDAY HER PCP AT 1:20PM.
[2019-04-27] MEDS: HEPARIN SODIUM,PORCINE 5000 UNITS/ML VIAL SUBCUT SCH (10:03)
[2019-04-27 10:18] VITALS: BP_SYST 149
== END 2019-04-27 10:40 | disposition home or self-care (01) ==
LOC: SED 21:40 → STU 04-26 00:20
PROVIDERS: ADMIT General Practice; ATTEND General Practice
DX: I13.2 Hypertensive heart and chronic kidney disease with heart failure and with stage 5 chronic kidney disease, or end stage renal disease (principal); I50.31 Acute diastolic (congestive) heart failure; N18.6 End stage renal disease; E11.22 Type 2 diabetes mellitus with diabetic chronic kidney disease; E11.21 Type 2 diabetes mellitus with diabetic nephropathy; E11.319 Type 2 diabetes mellitus with unspecified diabetic retinopathy without macular edema; E66.01 Morbid (severe) obesity due to excess calories; E46 Unspecified protein-calorie malnutrition; Z68.42 Body mass index [BMI] 45.0-49.9, adult; Z98.891 History of uterine scar from previous surgery
CPT/HCPCS: 36415 ×2; 71045; 80048; 80053; 82962 ×2; 83036; 83735; 83880; 84484; 85025 ×2; 85610; 85730; 87081; 93005; 94640 ×2; 96372 ×2; 96374; 96376; 99285; G0378 ×2; J1644 ×2; J1940 ×3; J7613; 90935; J7030

== ENCOUNTER 2019-05-03 01:36 | Emergency (ER) | payer MEDICAID ==
[~2019-05-03] VITALS: Ht 165.1 cm; Wt 113.4 kg
[~2019-05-03 01:36] MED LIST changes: -MINO2.5T PO
[2019-05-03 01:40] VITALS: BP_SYST 131
--- NOTE | 2019-05-03 01:40 | NUR ---
Patient to ER bed 4 to gown for evaluation. Side rails up. Report given to GABRIELLA Benton.
--- NOTE | 2019-05-03 01:50 | NUR ---
ER at bedside examining patient.
[2019-05-03] MEDS ORDERED: HYDROcodone/ACETAMIN 5-325 MG TAB (NORCO/ VICODIN) PO ONE (02:00)
[2019-05-03] MEDS ORDERED: IBUPROFEN 600 MG TABLET PO ONE (02:00)
--- NOTE | 2019-05-03 02:00 | NUR ---
Pt brought in by ambulance. Pt awake, alert, oriented x4. Pt states that she has had sore throat and R ear pain 10/10 for approx 3 days. Pt states that she has taken motrin with no pain relief. pt states that she is weak. Pt denies chest pain, sob, dizziness, blurred vision. Pt denies additional medical complaint at this time. vital signs stable.
[2019-05-03] MEDS ORDERED: AMOXICILLIN/CLAVULANATE POTASSIUM 875 MG TABLET PO ONE (03:30)
[2019-05-03] MEDS ORDERED: ONDANSETRON HCL 4 MG/2 ML VIAL IVP ONE (03:30)
[2019-05-03] MEDS ORDERED: fentaNYL CITRATE/PF 100 MCG/2 ML AMP IVP ONE (03:30)
--- NOTE | 2019-05-03 04:00 | NUR ---
Pt sleeping in bed comfortably. Vital signs stable.
[2019-05-03 06:40] VITALS: BP_SYST 130
--- NOTE | 2019-05-03 06:40 | NUR ---
Patient given written and verbal discharge instructions and verbalizes understanding. ER MD discussed with patient the results and treatment provided. Patient in stable condition. ID arm band removed. IV catheter removed intact and dressing applied, no active bleeding. Rx of [place], Augmentin, zofran, motrin given. Patient educated on pain management and to follow up with PMD. Pain Scale 0/10. Opportunity for questions provided and answered. Medication side effect fact sheet provided.
== END 2019-05-03 06:40 | disposition home or self-care (01) ==
LOC: SED 01:36
DX: J39.0 Retropharyngeal and parapharyngeal abscess (principal); I13.2 Hypertensive heart and chronic kidney disease with heart failure and with stage 5 chronic kidney disease, or end stage renal disease; E11.22 Type 2 diabetes mellitus with diabetic chronic kidney disease; N18.6 End stage renal disease; E11.40 Type 2 diabetes mellitus with diabetic neuropathy, unspecified; I50.9 Heart failure, unspecified; E11.319 Type 2 diabetes mellitus with unspecified diabetic retinopathy without macular edema; H92.01 Otalgia, right ear; F17.200 Nicotine dependence, unspecified, uncomplicated; F12.90 Cannabis use, unspecified, uncomplicated; Z79.4 Long term (current) use of insulin; Z79.899 Other long term (current) drug therapy; Z88.5 Allergy status to narcotic agent; Z99.2 Dependence on renal dialysis
CPT/HCPCS: 96374; 96375; 99284; J2405; J3010

== ENCOUNTER 2019-05-10 16:40 | Emergency (ER) | payer MEDICAID ==
[~2019-05-10 16:40] MED LIST changes: +LEVOFLOXACIN 750 mg/D5W 150 mL IVPB IV ONE
[2019-05-23 10:53] LABS: HEMATOCRIT 36.3 % (36-48); HEMOGLOBIN 11.6 g/dL (12.0-16.0); MEAN CORPUSCULAR HEMOGLOBIN 31 pg (27-31); MEAN CORPUSCULAR HGB CONC 33 % (32-36); MEAN CORPUSCULAR VOLUME 94 fL (79.0-98.0); PLATELET COUNT (AUTO) 226 K/uL (130-430); RED BLOOD CELL COUNT(AUTO) 3.86 MIL/uL (4.2-6.2); RED CELL DISTRIBUTION WIDTH 16.7 % (9.0-15.0); WHITE BLOOD COUNT (AUTO) 7.8 K/uL (4.8-10.8)
[2019-05-23 10:54] LABS: BASOPHILS % (AUTO) 0.7 % (0.0-2.0); LYMPHOCYTES % (AUTO) 18.5 % (20.5-51.5); MONOCYTES % (AUTO) 6.1 % (1.7-9.3); NEUTROPHILS % (AUTO) 71.7 % (40.0-70.0)
[2019-05-23 10:56] LABS: CALCIUM 8.8 mg/dL (8.4-11.0); CREATININE 6.26 mg/dL (0.55-1.30); POTASSIUM 4.4 mmol/L (3.5-5.1); TOTAL BILIRUBIN 0.6 mg/dL (0.0-1.0)
[2019-05-23 10:57] LABS: ALBUMIN 3.6 g/dL (3.4-4.8)
[2019-05-23 10:58] LABS: INR 1.1 (0.8-1.2)
== END 2019-05-10 16:45 | disposition home or self-care (01) ==
LOC: SED 16:40
DX: R06.02 Shortness of breath (principal); I13.2 Hypertensive heart and chronic kidney disease with heart failure and with stage 5 chronic kidney disease, or end stage renal disease; E11.22 Type 2 diabetes mellitus with diabetic chronic kidney disease; N18.6 End stage renal disease; I50.9 Heart failure, unspecified; G89.29 Other chronic pain; M54.5 Low back pain
CPT/HCPCS: 36415; 71045; 71275; 80053; 83605; 83880; 84484; 85025; 85379; 85610; 85730; 87040; 93005; 96365; 99284; J1956

== ENCOUNTER 2019-05-11 13:55 | Inpatient (IN) | payer MEDICAID ==
[~2019-05-11] VITALS: Ht 167.6 cm; Wt 136.1 kg
[~2019-05-11 13:55] MED LIST changes: -LEVOFLOXACIN 750 mg/D5W 150 mL IVPB IV ONE
--- NOTE | 2019-05-11 13:55 | NUR ---
Patient to ER bed 2 to gown for evaluation. Side rails up. Report given to
--- NOTE | 2019-05-11 13:55 | NUR ---
MD Stubbs at bedside assessing pt.
--- NOTE | 2019-05-11 13:55 | NUR ---
RN assessing pt, IV access instered into the right ac in one attempt with 20-g. All blood drawn at same time . RT at bedside assisting in stablizing pt. pt HOB up at 45 degrees. Non rebreather mask in place at 6 l.
[2019-05-11 14:52] VITALS: BP_SYST 207
[2019-05-11] MEDS ORDERED: fentaNYL CITRATE/PF 100 MCG/2 ML AMP IVP ONE ×2 (15:00→16:45)
[2019-05-11 15:31] LABS: BASOPHILS % (AUTO) 0.5 % (0.0-2.0); EOSINOPHILS % (AUTO) 0.5 % (0.0-4.0); HEMATOCRIT 32.4 % (36-48); HEMOGLOBIN 10.8 g/dL (12.0-16.0); LYMPHOCYTES # (AUTO) 0.8 K/uL (1.0-5.5); LYMPHOCYTES % (AUTO) 12.2 % (20.5-51.5); MEAN CORPUSCULAR HEMOGLOBIN 31 pg (27-31); MEAN CORPUSCULAR HGB CONC 33 % (32-36); MEAN CORPUSCULAR VOLUME 94 fL (79.0-98.0); MONOCYTES # (AUTO) 0.3 K/uL (0.0-1.0); MONOCYTES % (AUTO) 4.3 % (1.7-9.3); NEUTROPHILS # (AUTO) 5.5 K/uL (1.8-7.7); NEUTROPHILS % (AUTO) 82.5 % (40.0-70.0); PLATELET COUNT (AUTO) 175 K/uL (130-430); RED BLOOD CELL COUNT(AUTO) 3.45 MIL/uL (4.2-6.2); RED CELL DISTRIBUTION WIDTH 16.8 % (9.0-15.0); WHITE BLOOD COUNT (AUTO) 6.7 K/uL (4.8-10.8)
[2019-05-11 15:40] LABS: CALCIUM 9.1 mg/dL (8.4-11.0); CREATININE 4.68 mg/dL (0.55-1.30); POTASSIUM 4.2 mmol/L (3.5-5.1)
[2019-05-11 15:48] LABS: ALBUMIN 3.8 g/dL (3.4-4.8); TOTAL BILIRUBIN 0.9 mg/dL (0.0-1.0)
--- NOTE | 2019-05-11 16:07 | NUR ---
RN has accompanied pt to the CT of abdomen. pt is back in room 2. she is stable and continues on mask at 6 liters of o2. saturation 94%.
[2019-05-11] MEDS ORDERED: ENALAPRILAT DIHYDRATE 1.25 MG/ML VIAL IVP ONE (17:30)
[2019-05-11] MEDS ORDERED: cloNIDine HCL 0.1 MG TABLET PO ONE (17:45)
--- NOTE | 2019-05-11 17:50 | NUR ---
Patient orders received, entered by RN.
--- NOTE | 2019-05-11 19:01 | NUR ---
Clonidine helped bring down b/p to 191/94. pt is sleeping . Report given to rn building RN. pt is stable on face mask 6 liters. 97% o2 sat
[2019-05-11] MEDS ORDERED: hydrALAZINE HCL 20 MG/ML VIAL IVP PRN (19:15)
[2019-05-11] MEDS ORDERED: DEXTROSE 50% JECT 50 ML DISP.SYRIN IVP PRN (19:30)
[2019-05-11] MEDS ORDERED: ONDANSETRON HCL 4 MG/2 ML VIAL IVP PRN (19:30)
[2019-05-11] MEDS ORDERED: ACETAMINOPHEN 325 MG TABLET PO PRN (19:30)
[2019-05-11] MEDS ORDERED: HYDROcodone/ACETAMIN 5-325 MG TAB (NORCO/ VICODIN) PO PRN (19:30)
[2019-05-11] MEDS ORDERED: PANTOPRAZOLE SODIUM 40 MG/VIAL (PROTONIX) IVP ONE (20:00)
[2019-05-11] MEDS: ENOXAPARIN SODIUM 30 MG/0.3 ML SYRINGE SUBCUT SCH (20:58)
--- NOTE | 2019-05-11 21:00 | NUR ---
APRESOLINE 10 MG IVP PRN GIVEN PER SLIDING SCALE COV.
[2019-05-11] MEDS: HYDROcodone/ACETAMIN 10-325 MG TAB PO PRN (22:36)
--- NOTE | 2019-05-11 22:36 | NUR ---
NORCO 10-325 MG PO GIVEN FOR C/O ABDOMINAL PAIN, ASKED FOR MORE ICE CHIPS.
[2019-05-11] MEDS: hydrALAZINE HCL 25 MG TABLET PO SCH (22:37)
--- NOTE | 2019-05-11 22:40 | NUR ---
ACCU-CHEK 302, 6 UNITS REGULAR INSULIN SQ GIVEN PER SLIDING SCALE COV.
[2019-05-11] MEDS: INSULIN REGULAR, HUMAN 100 UNITS/ML, 10 ML VIAL (humuLIN R) SUBCUT PRN (22:46)
--- NOTE | 2019-05-12 04:19 | NUR ---
Pt c/o BM in pants. Moderate amount soft formed stool. Pants removed, pt cleaned. No skin breakdown. All sheets, blanket, gown removed and clean ones placed. Warm blanket provided and pillow.
--- NOTE | 2019-05-12 04:20 | NUR ---
Phleb at bedside for blood draw.
--- NOTE | 2019-05-12 04:20 | NUR ---
Pt black pants with stool states that she wants to keep them and her daughter can clean them. Placed in belongings bag at bedside.
[2019-05-12 04:30] LABS: BASOPHILS % (AUTO) 0.4 % (0.0-2.0); EOSINOPHILS % (AUTO) 0.1 % (0.0-4.0); HEMATOCRIT 36.9 % (36-48); HEMOGLOBIN 12.2 g/dL (12.0-16.0); LYMPHOCYTES # (AUTO) 1.3 K/uL (1.0-5.5); LYMPHOCYTES % (AUTO) 18.9 % (20.5-51.5); MEAN CORPUSCULAR HEMOGLOBIN 31 pg (27-31); MEAN CORPUSCULAR HGB CONC 33 % (32-36); MEAN CORPUSCULAR VOLUME 95 fL (79.0-98.0); MONOCYTES # (AUTO) 0.6 K/uL (0.0-1.0); NEUTROPHILS % (AUTO) 72.6 % (40.0-70.0); PLATELET COUNT (AUTO) 193 K/uL (130-430); RED BLOOD CELL COUNT(AUTO) 3.88 MIL/uL (4.2-6.2); RED CELL DISTRIBUTION WIDTH 16.8 % (9.0-15.0); WHITE BLOOD COUNT (AUTO) 6.9 K/uL (4.8-10.8)
--- NOTE | 2019-05-12 04:30 | NUR ---
1 more small stool defecated and incontinence of urine. cleaned. transferred to a regular bed. bernice well
--- NOTE | 2019-05-12 04:40 | NUR ---
norco 10-325 mg po given for abd'l pain.
--- NOTE | 2019-05-12 05:18 | NUR ---
SOUNDLY ASLEEP. NO DISTRESS NOTED. TURNS SELF WELL. VITAL SIGNS 60, 137/80, 100%, 14.
--- NOTE | 2019-05-12 06:10 | NUR ---
SLEEPING SOUNDLY. REMAINS IN GUARDED CONDITION.
--- NOTE | 2019-05-12 06:50 | NUR ---
ACCU-CHEK 185, NO INSULIN DUE PER SLIDING SCALE COV.
[2019-05-12] MEDS: INSULIN REGULAR, HUMAN 100 UNITS/ML, 10 ML VIAL (humuLIN R) SUBCUT PRN ×3 (06:51→21:51)
--- NOTE | 2019-05-12 07:13 | NUR ---
ADMIT NOTE Received pt from ER to the floor with a diagnosis of accelerated HTN. Admission process initiated. patient oriented to pain management, safety and call light-teach back done.
--- NOTE | 2019-05-12 07:45 | NUR ---
CONSULTATION PAGED/CALLED Reason for Consultation: RF Person Who was Notified: emmett Consulting Physician: isaura sorensen is supply and distribution manager Weight Recorder Specialty: Ordering Physician:carl
--- NOTE | 2019-05-12 08:01 | NUR ---
CONSULTATION PAGED/CALLED Reason for Consultation: CHF Person Who was Notified: THAI Consulting Physician: ROQUE Director Of Culture Specialty: CARDIO Ordering Physician: JAMIE
--- NOTE | 2019-05-12 08:03 | NUR ---
CONSULTATION PAGED/CALLED Reason for Consultation: EPIGASTRIC PAIN Person Who was Notified: CORI Consulting Physician: JENNIFFER Release Coordinator Specialty: GI Ordering Physician: JAMIE
[2019-05-12] MEDS: hydrALAZINE HCL 25 MG TABLET PO SCH ×3 (09:00→21:32)
--- NOTE | 2019-05-12 09:00 | NUR ---
PATIENT'S HAVING BREAKFAST AFTER ABDOMINAL ULTRASOUND. TOLERATED WITHOUT DISTRESS.
[2019-05-12] MEDS: PANTOPRAZOLE SODIUM 40 MG/VIAL (PROTONIX) IVP SCH ×2 (09:50→21:31)
[2019-05-12] MEDS: HYDROcodone/ACETAMIN 10-325 MG TAB PO PRN ×3 (09:51→23:12)
[2019-05-12 10:57] VITALS: BP_SYST 129
--- NOTE | 2019-05-12 11:24 | NUR ---
PATIENT IS GETTING PREPARED FOR HD. V/S STABLE.
--- NOTE | 2019-05-12 12:20 | NUR ---
BLOOD SUGAR 218. 2 UNITS OF RI WILL BE GIVEN.
[2019-05-12 12:40] VITALS: BP_SYST 126
[2019-05-12] MEDS: FUROSEMIDE 40 MG TABLET PO SCH (15:00)
--- NOTE | 2019-05-12 15:00 | NUR ---
4-LITERS IS REMOVED AFTER HD.
[2019-05-12] MEDS ORDERED: HYDROcodone/ACETAMIN 10-325 MG TAB ONE ×2 (16:33→23:17)
[2019-05-12 16:38] VITALS: BP_SYST 121
--- NOTE | 2019-05-12 17:00 | NUR ---
BLOOD SUGAR 194. NO COVERAGE PER SLIDING SCALE.
--- NOTE | 2019-05-12 18:28 | NUR ---
patient is sleeping after dinner. No signs of distress noted.
--- NOTE | 2019-05-12 19:30 | NUR ---
CHNGE OF SHIFT; pt. sleeping soundly when received. no cute distress. had hemodialysis today. will assess later, call light within reach.
--- NOTE | 2019-05-12 20:30 | NUR ---
NOTES: awakened, still very sleepy. VS checked. IV lock on rt, antecubital. permacath for dialysis access on rt. chest area. AV shunt on let arm but was not used fro dialysis. cardiac pttern on sinus rhythm borderline sinus becki. able to move extremities but appears to be weak. some abdominal discomfort noted, sking for pain med but not time yet and pt.aware. call light at bedside.
[2019-05-12 21:00] VITALS: BP_SYST 188
--- NOTE | 2019-05-12 21:30 | NUR ---
NOTES: Blood sugr checke with sliding scale coverage. due meds given. repositioned self for comfort.
[2019-05-12] MEDS ORDERED: PANTOPRAZOLE SODIUM 40 MG/VIAL (PROTONIX) ONE (21:38)
[2019-05-12] MEDS ORDERED: hydrALAZINE HCL 10 MG TABLET ONE (21:39)
[2019-05-12] MEDS: ENOXAPARIN SODIUM 30 MG/0.3 ML SYRINGE SUBCUT SCH (21:39)
[2019-05-12] MEDS ORDERED: ENOXAPARIN SODIUM 30 MG/0.3 ML SYRINGE ONE (21:40)
[2019-05-12] MEDS ORDERED: hydrALAZINE HCL 25 MG TABLET ONE (21:44)
--- NOTE | 2019-05-12 23:30 | NUR ---
NOTES: pt. awakened, c/o abdominal pain and medicated with [place]. pt. repositioned self for comfort. pt. gets sweaty.
--- NOTE | 2019-05-13 01:00 | NUR ---
NOTES: pt. sleeping when checked, noted relief.
[2019-05-13 01:43] VITALS: BP_SYST 158
--- NOTE | 2019-05-13 03:00 | NUR ---
NOTES: cardiac pattern unchanged,. continue to monitor.
[2019-05-13] MEDS: HYDROcodone/ACETAMIN 10-325 MG TAB PO PRN ×3 (05:15→20:24)
--- NOTE | 2019-05-13 05:15 | NUR ---
NOTES: c/o abdominal apin and medicated with [place].
[2019-05-13] MEDS ORDERED: HYDROcodone/ACETAMIN 10-325 MG TAB ONE (05:21)
--- NOTE | 2019-05-13 06:00 | NUR ---
NOTES; noted relief. helped pt. on am care. pt. got hungry. needs attended.
--- NOTE | 2019-05-13 06:45 | NUR ---
CLOSING NOTES; FOR FURTHER CARE AND ASSISTANCE. WILL CHECK BS. NEEDS ATTENDE CALL LIGHT WITHIN REACH. IV LOCK PATENT. ABLE TO WALK TO RESTROOM ACCORDING TO PT. BUT STILL REMINDED TO CALL FOR HELP.
--- NOTE | 2019-05-13 07:12 | NUR ---
Nutrition Update Jaskaran Scale 16 noted. Pt admitted for Accelerated HTN Diet: Renal Standard BMI: 48.4 kg/m2 RD to follow per nutrition care standards.
--- NOTE | 2019-05-13 07:25 | NUR ---
OPENING NOTE Patient resting in the bed. No acute distress. On O2 2L/min via NC. AAO X 4. Denied of pain. Skin warm and dry to touch. SL intact to RAC, no redness, no swelling, patent. AV shun intact to left arm with thrill/bruit present, no swelling, no bleeding noted. Permacath intact to right chest, no bleeding noted, covered with clean and dry transparent dressing. Discussed the safety issue, use call light when needs help, and plan of care, verbally understanding. Safety measure maintained. Call light within reached. Bed locked in low position, side rails up. Will continue to monitor.
[2019-05-13 07:55] VITALS: BP_SYST 154
[2019-05-13 07:58] LABS: BASOPHILS # (AUTO) 0.1 K/uL (0.0-0.2); BASOPHILS % (AUTO) 0.8 % (0.0-2.0); EOSINOPHILS # (AUTO) 0.1 K/uL (0.0-0.4); EOSINOPHILS % (AUTO) 1.8 % (0.0-4.0); HEMATOCRIT 33.2 % (36-48); HEMOGLOBIN 10.8 g/dL (12.0-16.0); LYMPHOCYTES # (AUTO) 1.4 K/uL (1.0-5.5); LYMPHOCYTES % (AUTO) 22.1 % (20.5-51.5); MEAN CORPUSCULAR HEMOGLOBIN 31 pg (27-31); MEAN CORPUSCULAR HGB CONC 33 % (32-36); MEAN CORPUSCULAR VOLUME 96 fL (79.0-98.0); MONOCYTES # (AUTO) 0.5 K/uL (0.0-1.0); MONOCYTES % (AUTO) 8.1 % (1.7-9.3); NEUTROPHILS # (AUTO) 4.4 K/uL (1.8-7.7); NEUTROPHILS % (AUTO) 67.2 % (40.0-70.0); PLATELET COUNT (AUTO) 160 K/uL (130-430); RED BLOOD CELL COUNT(AUTO) 3.45 MIL/uL (4.2-6.2); RED CELL DISTRIBUTION WIDTH 16.7 % (9.0-15.0); WHITE BLOOD COUNT (AUTO) 6.5 K/uL (4.8-10.8)
[2019-05-13] MEDS: FUROSEMIDE 40 MG TABLET PO SCH (09:06)
[2019-05-13] MEDS: PANTOPRAZOLE SODIUM 40 MG/VIAL (PROTONIX) IVP SCH ×2 (09:06→20:31)
[2019-05-13] MEDS: hydrALAZINE HCL 25 MG TABLET PO SCH ×3 (09:07→20:31)
--- NOTE | 2019-05-13 09:08 | NUR ---
AM SCHEDULE MED GIVEN, TOLERATED WELL.
[2019-05-13 09:15] LABS: CALCIUM 8.7 mg/dL (8.4-11.0); CREATININE 5.4 mg/dL (0.55-1.30); POTASSIUM 4.6 mmol/L (3.5-5.1); TOTAL BILIRUBIN 0.6 mg/dL (0.0-1.0)
[2019-05-13 09:16] LABS: ALBUMIN 3.4 g/dL (3.4-4.8); FREE T4 (FREE THYROXINE) 1.1 ng/dL (0.6-1.6); PHOSPHORUS 5.6 mg/dL (2.7-4.5); THYROID STIMULATING HORMONE 1.85 uIu/mL (0.34-4.82)
--- NOTE | 2019-05-13 10:10 | NUR ---
SEEN AND EXAMINED BY ANDRES NUÑEZ.
--- NOTE | 2019-05-13 11:05 | NUR ---
ROUND Patient resting in the bed with eyes closed. No acute distress. Continue on O2 3L/min via NC. Safety measure maintained. Call light within reached. Continue to monitor.
[2019-05-13] MEDS: INSULIN REGULAR, HUMAN 100 UNITS/ML, 10 ML VIAL (humuLIN R) SUBCUT PRN ×2 (11:47→20:51)
[2019-05-13 13:09] VITALS: BP_SYST 145
--- NOTE | 2019-05-13 13:25 | NUR ---
ROUND Patient resting in the bed with eyes closed. No acute distress. Continue on O2 via NC. Safety measure maintained. Call light within reached. Continue to monitor.
--- NOTE | 2019-05-13 14:08 | NUR ---
Ict Development Manager: conduct a DCPA and Social Work interview. TELLER SUPERVISOR met with pt. who was eating lunch at the time. Pt stated her daughter and daughters boyfriend reside with her so upon D/C they can assist her. She stated she knows the long list of why she was admitted to the hospital. She stated she may be D/C today. Pt. confirmed her address,emergency contact etc. as stated in the face sheet. Pt. stated she is Diabetic, gets Dialysis on MWF and is good about taking her medication. She stated at times she can only stay for Dialysis for 2 of the 4 hours as she has a bad back and sitting for a long time can cause great pain. She goes to [facility] in [place] for Dialysis. She stated her kidney Dr. put her on Ativan while she was at [facility] due to anxiety. She added wanted to put her on Depression medication because she was/is depressed, but pt. refused to be put on any type of meds. Pt. stated she had been on antidepresants for a couple of months, but felt it did not help her. TELLER SUPERVISOR shared with her that there are other medications to try, but pt. was not interested. Pt. denied ever feeling depressed or suicidal. She did not want any other types of social sciences instructor and refused any type of resources stating she knew who to go to or speak to if she needed medication for depression. Lastly she added she has a rapport with the Workers Compensation Claims Analyst, Holley Crespo. TELLER SUPERVISOR will remain available as needed.
--- NOTE | 2019-05-13 14:14 | NUR ---
NORCO GIVEN Patient c/o abdomen pain 01/12, [place] 10/325mg 1 tab PO given as ordered. No acute distress. Continue on O2 via NC. Safety measure maintained. Call light within reached. Bed locked in low position, side rails up. Continue to monitor.
--- NOTE | 2019-05-13 14:54 | NUR ---
SEEN AND EXAMINED BY LAKESHA BARRY WITH ORDER RECEIVED.
[2019-05-13 16:17] VITALS: BP_SYST 151
--- NOTE | 2019-05-13 17:18 | NUR ---
BY=[id number] No insulin coverage needed per sliding scale.
--- NOTE | 2019-05-13 18:35 | NUR ---
CLOSING NOTE Patient resting in the bed. No acute distress. On O2 2L/min via NC. Pain med given as needed. Skin warm and dry to touch. SL intact to RAC, no redness, no swelling, patent. AV shun intact to left arm with thrill/bruit present, no swelling, no bleeding noted. Permacath intact to right chest, no bleeding noted, covered with clean and dry transparent dressing. All needs met. Safety measure maintained. Call light within reached. Bed locked in low position, side rails up. Will endorse to night nurse.
--- NOTE | 2019-05-13 18:50 | NUR ---
SEEN AND EXAMINED BY HERBERT TAVERAS WITH ORDER RECEIVED.
--- NOTE | 2019-05-13 19:32 | NUR ---
OPENING NOTES RECEIVED PATIENT IN BED RESTING. BREATHING UNLABORED. BED IN LOWEST LOCKED POSITION. CALL LIGHT WITH IN REACH. BED ALARM ON.
[2019-05-13 20:14] VITALS: BP_SYST 151
--- NOTE | 2019-05-13 20:24 | NUR ---
PAIN MGT PATIENT MEDICATED WITH NORCO FOR C/O MIDDLE UPPER ABDOMINAL PAIN 01/12. VITAL SIGNS STABLE. SAFETY PRECAUTIONS IN PLACED.
[2019-05-13] MEDS: ENOXAPARIN SODIUM 30 MG/0.3 ML SYRINGE SUBCUT SCH (20:47)
[2019-05-13] MEDS: LABETALOL HCL 100 MG TABLET PO SCH (21:00)
--- NOTE | 2019-05-14 00:35 | NUR ---
ROUNDS PATIENT RESTING IN BED. BREATHING UNLABORED. SNORING ON AND OFF. NO DISTRESS NOTED. CALL LIGHT WITH IN REACH.
[2019-05-14] MEDS: HYDROcodone/ACETAMIN 10-325 MG TAB PO PRN (02:49)
--- NOTE | 2019-05-14 02:49 | NUR ---
PAIN MGT PATIENT MEDICATED WITH NORCO 10 MG FOR C/O ABDOMINAL PAIN 03/14. SAFETY PRECAUTIONS IN PLACED.
--- NOTE | 2019-05-14 04:00 | NUR ---
PAIN PATIENT WOKE UP C/O PAIN MEDICATION NOT WORKING FOR HER. PATIENT REQUESTING IV MEDICATION FOR PAIN. PAGED DR. AYALA.
--- NOTE | 2019-05-14 04:43 | NUR ---
PAIN PATIENT WALKING IN THE HALLWAY CRYING. PATIENT INFORMED MD ALREADY PAGED TWICE AND HE HAS NOT CALL BACK. PATIENT ASSISTED BACK TO HER ROOM.
[2019-05-14] MEDS ORDERED: GABAPENTIN 100 MG CAPSULE PO SCH (06:00)
--- NOTE | 2019-05-14 06:00 | NUR ---
MD DR. AYALA CALLED BACK. INFORMED OF PATIENT PAIN. NEW ORDER FOR GABAPENTIN 100 MG PO TID GIVEN.
--- NOTE | 2019-05-14 06:34 | NUR ---
CLOSING NOTES FIRST DOSE OF GABAPENTIN GIVEN. PATIENT RESTING IN BED. NO DISTRESS NOTED. BED IN LOWEST LOCKED POSITION WITH ALARM ON. CALL LIGHT WITH IN REACH. PATIENT NEEDS ATTENDED.
--- NOTE | 2019-05-14 07:45 | NUR ---
HANDOFF FROM TALHA Banks RN. HEMODIALYSIS PLAN TODAY. GAVE PATIENT WARM BLANKET AFTER ASSESSMENT. STANLEY Ferguson RN
[2019-05-14 08:02] VITALS: BP_SYST 210
[2019-05-14 08:03] VITALS: BP_SYST 211
[2019-05-14] MEDS ORDERED: HEPARIN SODIUM,PORCINE 5000 UNITS/ML VIAL MC ONE (11:00)
[2019-05-14 11:52] VITALS: BP_SYST 160
[2019-05-14] MEDS: hydrALAZINE HCL 25 MG TABLET PO SCH (12:31)
[2019-05-14] MEDS: FUROSEMIDE 40 MG TABLET PO SCH (12:32)
[2019-05-14] MEDS: LABETALOL HCL 100 MG TABLET PO SCH (12:33)
[2019-05-14] MEDS: PANTOPRAZOLE SODIUM 40 MG/VIAL (PROTONIX) IVP SCH (12:33)
[2019-05-14] MEDS ORDERED: NEPH PO (14:24)
[2019-05-14] MEDS ORDERED: NOR10 PO (14:30)
[2019-05-14] MEDS ORDERED: amLODIPine BESYLATE 10 MG TABLET PO ONE (14:30)
--- NOTE | 2019-05-14 14:43 | NUR ---
PATIENT REQUEST TO DISCHARGE TO HOME. PATIENT REQUEST FOR SNACK PUDDING. NEEDS MET AT THIS TIME. STANLEY ORTEGA RN
[2019-05-14 14:46] VITALS: BP_SYST 160
--- NOTE | 2019-05-14 16:44 | NUR ---
PATIENT DISCHARGE TO HOME WITH FAMILY. ALL BELONGINGS SENT WITH PATIENT. CLEAN, DRY INTACT SITE OF IV REMOVAL. CATHETER TIP IS INTACT. PATIENT AMBULATORY WITH A STEADY GAIT. SAYS SHE WILL GO TO [facility] AT THIS TIME IF HER DAD WILL TAKE HER. STANLEY Ferguson RN
[2019-05-15] MEDS ORDERED: amLODIPine BESYLATE 10 MG TABLET PO SCH (09:00)
== END 2019-05-14 16:20 | disposition home or self-care (01) | DRG 194 ==
LOC: SED 13:55 → STU 17:40 → SMU 05-13 19:26
PROVIDERS: ADMIT Internal Medicine; ATTEND Internal Medicine
PROC: 5A1D70Z Performance of Urinary Filtration, Intermittent, Less than 6 Hours Per Day (ICD-10-PCS; principal; 2019-05-12)
PROC: 5A1D70Z Performance of Urinary Filtration, Intermittent, Less than 6 Hours Per Day (ICD-10-PCS; 2019-05-14)
DX: I13.2 Hypertensive heart and chronic kidney disease with heart failure and with stage 5 chronic kidney disease, or end stage renal disease (principal); E11.22 Type 2 diabetes mellitus with diabetic chronic kidney disease; I27.20 Pulmonary hypertension, unspecified; N18.6 End stage renal disease; E66.01 Morbid (severe) obesity due to excess calories; R18.8 Other ascites; I16.0 Hypertensive urgency; I50.41 Acute combined systolic (congestive) and diastolic (congestive) heart failure; E87.70 Fluid overload, unspecified; B34.9 Viral infection, unspecified; M47.816 Spondylosis without myelopathy or radiculopathy, lumbar region; D63.8 Anemia in other chronic diseases classified elsewhere; K74.60 Unspecified cirrhosis of liver; R16.2 Hepatomegaly with splenomegaly, not elsewhere classified; F17.210 Nicotine dependence, cigarettes, uncomplicated; Z99.2 Dependence on renal dialysis; Z91.14 Patient's other noncompliance with medication regimen; Z91.15 Patient's noncompliance with renal dialysis; Z91.19 Patient's noncompliance with other medical treatment and regimen; Z68.42 Body mass index [BMI] 45.0-49.9, adult; Z88.5 Allergy status to narcotic agent; Z88.8 Allergy status to other drugs, medicaments and biological substances; Z79.899 Other long term (current) drug therapy; Z56.0 Unemployment, unspecified
CPT/HCPCS: 36415; 71045; 76700-TC; 80053; 80061; 82140-TC; 82962; 83690-TC; 83880; 84100-TC; 84439; 84443-TC; 84484; 85025; 90935; 90937; 96372; 96374; 96375; 99285; C9113; G0378; J1644; J1650; J1815; J7030

== ENCOUNTER 2019-12-07 00:40 | Emergency (ER) | payer MEDICAID ==
[~2019-12-07] VITALS: Ht 167.6 cm; Wt 158.8 kg
[2019-12-07 00:40] VITALS: BP_SYST 156
[~2019-12-07 00:40] MED LIST changes: +NEPH PO; +NOR10 PO
--- NOTE | 2019-12-07 00:40 | NUR ---
Pt biba from home to bed 5
--- NOTE | 2019-12-07 00:50 | NUR ---
ER at bedside examining patient.
--- NOTE | 2019-12-07 00:55 | NUR ---
Pt BIBA ALS for SOB and back pain x today. Pt reports falling on her knees and not being able to get back up due to her weight, witnessed by daughter. Pt is on 10 L non rebreather mask. Allergic to morphine. Hx of CHF, DM.
--- NOTE | 2019-12-07 01:21 | NUR ---
EKG performed at BS by MARIBEL Hidalgo. Physician given copy of EKG for review.
[2019-12-07 02:00] LABS: BASOPHILS # (AUTO) 0.1 K/uL (0.0-0.2); BASOPHILS % (AUTO) 1.1 % (0.0-2.0); EOSINOPHILS # (AUTO) 0.1 K/uL (0.0-0.4); EOSINOPHILS % (AUTO) 2.1 % (0.0-4.0); HEMATOCRIT 27.1 % (36-48); HEMOGLOBIN 9.1 g/dL (12.0-16.0); LYMPHOCYTES # (AUTO) 1.3 K/uL (1.0-5.5); LYMPHOCYTES % (AUTO) 21.2 % (20.5-51.5); MEAN CORPUSCULAR HEMOGLOBIN 33 pg (27-31); MEAN CORPUSCULAR HGB CONC 34 % (32-36); MEAN CORPUSCULAR VOLUME 98 fL (79.0-98.0); MONOCYTES # (AUTO) 0.6 K/uL (0.0-1.0); NEUTROPHILS % (AUTO) 65.6 % (40.0-70.0); PLATELET COUNT (AUTO) 228 K/uL (130-430); RED BLOOD CELL COUNT(AUTO) 2.76 MIL/uL (4.2-6.2); RED CELL DISTRIBUTION WIDTH 15.6 % (9.0-15.0)
--- NOTE | 2019-12-07 02:00 | NUR ---
Pt c/o lower mid back pain. aware of pts back pain.
[2019-12-07 02:11] LABS: CALCIUM 8.1 mg/dL (8.4-11.0); CREATININE 6.53 mg/dL (0.55-1.30); POTASSIUM 4.6 mmol/L (3.5-5.1)
[2019-12-07 02:12] LABS: INR 1.1 (0.8-1.2); PROTHROMBIN TIME 10.9 SECS (9.5-12.5)
[2019-12-07 02:19] LABS: ALBUMIN 2.9 g/dL (3.4-4.8); TOTAL BILIRUBIN 0.4 mg/dL (0.0-1.0)
[2019-12-07] MEDS ORDERED: KETOROLAC TROMETHAMINE 30 MG VIAL IVP ONE (02:30)
--- NOTE | 2019-12-07 02:30 | NUR ---
Pt is aware she is being admitted, wants to sign out AMA. Will contcact family.
--- NOTE | 2019-12-07 02:45 | NUR ---
Spoke to pt's daughter Lilli, refused to pear picker patient. Stating they cannot pear picker patient because "she does not fit in the car".
--- NOTE | 2019-12-07 03:01 | NUR ---
at bedside discussing with patient, the necessity of being admitted. Dr. Palumbo stated patient said she wants to go home, and go to [facility].
[2019-12-07 03:03] VITALS: BP_SYST 169
--- NOTE | 2019-12-07 03:24 | NUR ---
Pt wants to sit up in a chair, feels uncomfortable on gurney.
--- NOTE | 2019-12-07 03:33 | NUR ---
spoke to family and discussed the patient making suicidal statements. Pt's stated to pt always threatens to wanting to but has not carried out a plan. Tele psych w/ [facility] will be placed.
--- NOTE | 2019-12-07 04:55 | NUR ---
Dr. Palumbo at bedside discussing tele med psych consult.
--- NOTE | 2019-12-07 05:03 | NUR ---
Pt refused to talk to tele med psych [facility].
--- NOTE | 2019-12-07 05:22 | NUR ---
Pt became combative throwing IV pole, everything taken out of the room. Security has been called.
--- NOTE | 2019-12-07 06:10 | NUR ---
Pt resting on chair, symmetric chest rise and fall. No complaints at this time.
--- NOTE | 2019-12-07 07:37 | NUR ---
Pt refused vital signs stated she would not do anything. Pt is refusing care
--- NOTE | 2019-12-07 07:39 | NUR ---
While waiting for Dr Ratliff, also attmepted to make use of [facility] unsuccessfully. [facility] experiencing technical difficulties at this time.
[2019-12-07] MEDS ORDERED: ENOXAPARIN SODIUM 120 MG/0.8 ML SYRINGE SUBCUT ONE (07:45)
--- NOTE | 2019-12-07 09:01 | NUR ---
Pt father able to convince pt to cooperate with staff and be admitted to hospital.
[2019-12-07] MEDS ORDERED: HYDROcodone/ACETAMIN 5-325 MG TAB (NORCO/ VICODIN) PO ONE (10:00)
--- NOTE | 2019-12-07 10:05 | NUR ---
Pt states she wishes to terminate plan of care and AMA at this time. Family to be notified for ride.
[2019-12-07] MEDS: HYDROcodone/ACETAMIN 5-325 MG TAB (NORCO/ VICODIN) PO ONE ×2 (10:12→11:12)
--- NOTE | 2019-12-07 10:13 | NUR ---
Pt father reached via telephone. He will be arriving to speak with pt and pick her up.
--- NOTE | 2019-12-07 11:15 | NUR ---
Patient does not wish to proceed with medical care recommended by Dr Edward. Patient given information related to possible complications, up to and including , which could occur as a result of leaving hospital at this time. Patient verbalizes understanding of risks involved leaving against medical advice. Patient has signed AMA form.
== END 2019-12-07 11:15 | disposition left against medical advice (07) ==
LOC: SED 00:40
DX: I50.9 Heart failure, unspecified (principal); N18.6 End stage renal disease; E11.9 Type 2 diabetes mellitus without complications; R79.1 Abnormal coagulation profile; Z79.899 Other long term (current) drug therapy; Z79.4 Long term (current) use of insulin; Z88.6 Allergy status to analgesic agent
CPT/HCPCS: 71045; 80053; 83880; 84484; 85025; 85379; 85610; 93005; 96372; 96374; 99285; J1650; J1885